=== PATIENT | male | born 1955 | race American Indian/Alaskan Native ===

== ENCOUNTER 2019-10-14 07:41 | Day surgery (SDC) | payer MEDICARE, OTHER ==
[2019-10-14] MEDS ORDERED: EPINEPHrine 1:10,000 1 MG/10 ML SYRINGE ONE (09:38)
[2019-10-14] MEDS ORDERED: LIDOCAINE PF 100 MG/5 ML (CARDIAC SYRINGE) IV ONE (09:38)
[2019-10-14] MEDS ORDERED: ATROPINE 0.1% (1 MG/10 ML) CARDIAC SYRINGE ONE (09:38)
[2019-10-14] MEDS ORDERED: PHENYLEPHRINE/NS 1,000 MCG/10 ML SYRINGE (OR USE) IV ONE (09:39)
[2019-10-14] MEDS ORDERED: SODIUM CHLORIDE 0.9% 500 ML 500 ML ONE (09:47)
[2019-10-14] MEDS ORDERED: NITROGLYCERIN 0.4 MG TAB SUBL SL ONE (10:00)
[2019-10-14] MEDS ORDERED: SODIUM CHLORIDE 0.9% 500 ML 500 ML IV SCH (10:00)
--- NOTE | 2019-10-14 10:29 | Short Stay Summary ---
Short Stay Documentation Date of service: 10/14/19 - History H&P: obtained from office - Allergies and Medications Current Medications: Allergies shellfish derived Adverse Reaction (Unverified 10/14/19 07:41) Anaphylaxis Home Medications Medication Instructions Recorded Confirmed Last Taken Type Aspirin [Adult Aspirin] 81 mg PO DAILY 10/14/19 10/14/19 10/14/19 History Azilsartan Medoxomil [Edarbi] 40 mg PO DAILY 10/14/19 10/14/19 10/14/19 History Ezetimibe [Zetia] 10 mg PO DAILY 10/14/19 10/14/19 10/13/19 History Metoprolol [Lopressor TAB] 50 mg PO DAILY 10/14/19 10/14/19 10/14/19 History Tamsulosin [Flomax] 0.4 mg PO QDAY 10/14/19 10/14/19 1 Week Ago History ~10/07/19 allopurinoL [Zyloprim] 300 mg PO QHS 10/14/19 10/14/19 Unknown History hydroCHLOROthiazide [HCTZ] 25 mg PO DAILY 10/14/19 10/14/19 4 Days Ago History ~10/10/19 Active Medications Sodium Chloride (Nacl 0.9% 500 Ml) 500 mls @ 50 mls/hr IV DIRECT UNIQUE - Physical exam General appearance: no acute distress Integumentary: no rash HEENT: Atraumatic Lungs: Clear to auscultation Breasts: deferred Heart: Regular rate Gastrointestinal: normal Male Genitourinary: deferred Female Genitourinary: deferred Rectal Exam: deferred Extremities: no ischemia Neurological: Normal gait - Brief post op/procedure progress note Date of procedure: 10/14/19 Pre-op diagnosis: Syncope Post-op diagnosis: same Procedure: TTT Anesthesia: none Findings: See report Surgeon: HEENA HORVATH Estimated blood loss: none Pathology: none Condition: stable - Hospital course Hospital course: Uneventful - Disposition Condition at discharge: Good Disposition: DC-01 TO HOME OR SELFCARE Short Stay Discharge Plan Activity: advance as tolerated Weight Bearing Status: Weight Bear as Tolerated Diet: low fat, low cholesterol, low salt Follow up with: PRIMARY CARE, [Primary Care Provider] - 7 Days
--- NOTE | 2019-10-14 10:54 | Procedure Note ---
TILT TABLE TEST ORDERING PHYSICIAN: Mike Hernadez MD INDICATION FOR THE PROCEDURE: Syncope. FINDINGS: After obtaining the consent, the patient was brought to the research laboratory manager area. The patient was secured to the tilt table test. The patient's baseline vital signs were heart rate of 66 beats per minute with a blood pressure of 159/87. The patient was then tilted to 85 degrees from horizontal and kept in this position for 10 minutes. Immediately after tilting, his blood pressure was 145/99 with a heart rate of 67 beats per minute. Ten minutes into the tilting, his blood pressure was 151/96 with a heart rate of 74 beats per minute. The patient was subsequently given 0.4 mg of sublingual nitroglycerin. The lowest recorded blood pressure was 139/91 and the highest recorded heart rate was 86 beats per minute. The patient did not experience any dizziness or syncope. There was no evidence of kahtarine or tachyarrhythmias or a vasodepressor response. IMPRESSION: This is a negative tilt table test with no evidence of vasodepressor or cardioinhibitory response. 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 JOB# [id number] STELLA/TUTU
[2019-10-14 11:15] VITALS: BP 134/77
== END 2019-10-14 11:10 | disposition home or self-care (01) ==
LOC: CATHLABREC 07:41
PROVIDERS: ATTEND Internal Medicine
DX: R55 Syncope and collapse (principal); I10 Essential (primary) hypertension; I25.10 Atherosclerotic heart disease of native coronary artery without angina pectoris; E78.00 Pure hypercholesterolemia, unspecified; Z90.49 Acquired absence of other specified parts of digestive tract; Z95.1 Presence of aortocoronary bypass graft; Z79.899 Other long term (current) drug therapy; Z91.013 Allergy to seafood; Z79.82 Long term (current) use of aspirin
CPT/HCPCS: 82962; 93660; J7040; J0171; J0461; J2001; J2370